=== PATIENT | male | born 1950 | race African-American/Black ===

== ENCOUNTER 2016-10-20 21:11 | Emergency (ER) | payer MEDICARE, OTHER ==
[~2016-10-20] VITALS: Ht 182.9 cm; Wt 68.0 kg
[~2016-10-20 21:11] MED LIST: AMLO10TA2 PO; CLOT15CR TP; POTA20TA4 PO; RANI150C PO
[2016-10-20 21:25] VITALS: BP 120/71
[2016-10-20] MEDS ORDERED: HYDROCODONE/APAP 5/325MG TABLET. PO ONE (21:45)
[2016-10-20] MEDS ORDERED: HYDR-2666 PO (22:18)
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
--- NOTE | 2016-10-21 08:53 | RAD ---
3 view right rib detail series and AP view chest x-ray Indications: Right rib pain after a fall today. Findings: There is a small cortical disruption of the lateral aspect of the right fifth rib. Mild deformity of the lateral aspect of the right sixth rib is seen. This is consistent with nondisplaced acute right rib fractures. There are old healed fractures of the lateral aspect of the right ninth and 10th ribs. Comparison chest x-ray: July 02, 2016. Chest x-ray demonstrates old healed left rib cage fractures. No pleural effusion or pneumothorax is seen. There is chronic interstitial lung disease bilaterally. No lung consolidation is seen. The heart size and pulmonary vasculature and mediastinum and both duncan are unremarkable otherwise. IMPRESSION: Nondisplaced acute posttraumatic fractures of the lateral right fifth and sixth ribs.
== END 2016-10-20 22:46 | disposition home or self-care (01) ==
LOC: ER 21:11
DX: R07.81 Pleurodynia (principal); I10 Essential (primary) hypertension; K21.9 Gastro-esophageal reflux disease without esophagitis; F10.20 Alcohol dependence, uncomplicated; F12.10 Cannabis abuse, uncomplicated; F14.10 Cocaine abuse, uncomplicated; Z86.718 Personal history of other venous thrombosis and embolism; W17.89XA Other fall from one level to another, initial encounter; Y93.89 Activity, other specified; Y99.8 Other external cause status; Y92.89 Other specified places as the place of occurrence of the external cause
CPT/HCPCS: 71101; 99284

== ENCOUNTER 2019-04-03 08:12 | Emergency (ER) | payer OTHER ==
[~2019-04-03] VITALS: Ht 182.9 cm; Wt 68.0 kg
[~2019-04-03 08:12] MED LIST changes: -AMLO10TA2 PO; +AMLO10TA8 PO; +HYDR-2761 PO
[2019-04-03 09:16] LABS: BASO # 0.1 x10^3/uL (0.0-0.2); BASO % 1 % (0-3); EOS # 0.4 x10^3/uL (0.0-0.7); EOS % 5 % (0-3); HEMATOCRIT 26.4 % (39.0-53.0); HEMOGLOBIN 8.5 g/dL (13.0-17.5); LYMPH # 1.3 x10^3/uL (1.0-4.8); LYMPH % 16 % (24-48); MEAN CORPUSCULAR HEMOGLOBIN 28 pg (25-35); MEAN CORPUSCULAR HGB CONC 32 g/dL (31-37); MEAN CORPUSCULAR VOLUME 86 fL (79-100); MONO # 0.5 x10^3/uL (0.0-1.1); MONO % 7 % (0-9); NEUT # 5.8 x10^3uL (1.8-7.7); NEUT % 72 % (31-73); PLATELET COUNT 249 x10^3/uL (140-400); RED BLOOD COUNT 3.05 x10^6/uL (4.30-5.70); RED CELL DISTRIBUTION WIDTH 15.7 % (11.5-14.5); WHITE BLOOD COUNT 8.1 x10^3/uL (4.0-11.0)
--- NOTE | 2019-04-03 09:17 | PHYS DOC ---
Past Medical History Past Medical History: DVT, GERD, Hypertension Past Surgical History: Other Additional Past Surgical Histo: right bka Alcohol Use: Heavy Drug Use: Cocaine, Marijuana Adult General Chief Complaint Chief Complaint: PICC line placement HPI HPI Patient is a 68 year old male who brought in by EMS for insertion of PICC line. Patient is a resident of [facility] and taking cephalosporin antibiotic through the PICC line. halfway reported that intermittently and of transfusion of antibiotic this morning patient changed position and PICC line came out. Patient asking for snack frequently and denies other problem at arrival to ER. Review of Systems Review of Systems Constitutional: Denies fever or chills [] Eyes: Denies change in visual acuity, redness, or eye pain [] HENT: Denies nasal congestion or sore throat [] Respiratory: Denies cough or shortness of breath [] Cardiovascular: No additional information not addressed in HPI [] GI: Denies abdominal pain, nausea, vomiting, bloody stools or diarrhea [] : Denies dysuria or hematuria [] Musculoskeletal: Denies back pain or joint pain [] Integument: Denies rash or skin lesions [] Neurologic: Denies headache, focal weakness or sensory changes [] Endocrine: Denies polyuria or polydipsia [] All other systems were reviewed and found to be within normal limits, except as documented in this note. Current Medications Current Medications Current Medications Medications (Trade) Dose Ordered Sig/[facility] Start Time Stop Time Status Last Admin Dose Admin Metoclopramide HCl (Reglan Vial) 10 mg 1X ONCE 04/03/19 11:15 04/03/19 11:16 DC 04/03/19 10:58 10 MG Oxycodone HCl (Roxicodone) 10 mg 1X ONCE 04/03/19 09:30 04/03/19 09:31 DC 04/03/19 09:42 10 MG Allergies Allergies Allergies Coded Allergies Type Severity Reaction Last Updated Verified No Known Drug Allergies 07/02/16 No Physical Exam Physical Exam Constitutional: Well nourished, no acute distress, non-toxic appearance. [] HENT: Normocephalic, atraumatic Eyes: PERRLA, EOMI, conjunctiva normal, no discharge. [] Neck: Normal range of motion, no tenderness, supple, no stridor. [] Cardiovascular:Heart rate regular rhythm, no murmur [] Lungs & Thorax: Bilateral breath sounds clear to auscultation [] Skin: Warm, dry, no erythema, no rash. [] Back: No tenderness, no CVA tenderness. [] Extremities: Right below knee amputation, left lower extremity dressing in place, no tenderness, no cyanosis, no clubbing, ROM intact, no edema. [] Neurologic: Alert and oriented X 3, normal motor function, normal sensory function, no focal deficits noted. [] Psychologic: Affect normal, judgement normal, mood normal. [] Current Patient Data Vital Signs Vital Signs Date Time Temp Pulse Resp B/P (MAP) Pulse Ox O2 Delivery O2 Flow Rate FiO2 04/03/19 13:42 66 22 128/67 (87) 97 Room Air 04/03/19 08:22 97.6 97.6 Lab Values Laboratory Tests Test 04/03/19 08:40 04/03/19 09:04 Glucose (Fingerstick) 99 mg/dL (70-99) White Blood Count 8.1 x10^3/uL (4.0-11.0) Red Blood Count 3.05 x10^6/uL (4.30-5.70) L Hemoglobin 8.5 g/dL (13.0-17.5) L Hematocrit 26.4 % (39.0-53.0) L Mean Corpuscular Volume 86 fL (79-100) Mean Corpuscular Hemoglobin 28 pg (25-35) Mean Corpuscular Hemoglobin Concent 32 g/dL (31-37) Red Cell Distribution Width 15.7 % (11.5-14.5) H Platelet Count 249 x10^3/uL (140-400) Neutrophils (%) (Auto) 72 % (31-73) Lymphocytes (%) (Auto) 16 % (24-48) L Monocytes (%) (Auto) 7 % (0-9) Eosinophils (%) (Auto) 5 % (0-3) H Basophils (%) (Auto) 1 % (0-3) Neutrophils # (Auto) 5.8 x10^3uL (1.8-7.7) Lymphocytes # (Auto) 1.3 x10^3/uL (1.0-4.8) Monocytes # (Auto) 0.5 x10^3/uL (0.0-1.1) Eosinophils # (Auto) 0.4 x10^3/uL (0.0-0.7) Basophils # (Auto) 0.1 x10^3/uL (0.0-0.2) Sodium Level 138 mmol/L (136-145) Potassium Level 4.3 mmol/L (3.5-5.1) Chloride Level 103 mmol/L (98-107) Carbon Dioxide Level 26 mmol/L (21-32) Anion Gap 9 (6-14) Blood Urea Nitrogen 22 mg/dL (8-26) Creatinine 1.3 mg/dL (0.7-1.3) Estimated GFR (Cockcroft-Gault) 66.6 Glucose Level 91 mg/dL (70-99) Calcium Level 9.2 mg/dL (8.5-10.1) Laboratory Tests 04/03/19 09:04 Laboratory Tests 04/03/19 09:04 EKG EKG [] Radiology/Procedures Radiology/Procedures [][facility] [address] [place], [place] [id number] IMAGING REPORT Signed PATIENT: MERRICK DIAZ ACCOUNT: [id number] : 1950 LOCATION: ER AGE: 68 SEX: M EXAM STATUS: REG ER ORD. PHYSICIAN: RICARDO GUTIERREZ MD REASON: PICC line insertion PROCEDURE: PORTABLE CHEST 1V EXAM: 1. Chest one view, 1210. 2. Chest one view, 1224. 3. Chest one view, 1235. 4. Chest one view, 1237. HISTORY: PICC line placement. COMPARISON: 10/20/2016. FINDINGS: The initial examination demonstrates a left arm PICC line with its tip in the superior cavoatrial junction. Later images demonstrate repositioning into the distal superior vena cava on the final study. Interstitial opacities in a basilar and subpleural distribution on the right greater than left are increased since 2017. There is no pneumothorax or pleural effusion. The heart is not enlarged. Atherosclerotic calcifications are noted. IMPRESSION: 1. The PICC line has its tip in the distal superior vena cava on the final image. 2. Interstitial infiltrates suggesting interstitial lung disease have developed since 10/20/2016. Electronically signed by: Elijah Ho MD (04/03/2019 2:06 PM) [facility] DICTATED and SIGNED BY: CHELSEY HO MD DATE: 04/03/19 1403 Course & Med Decision Making Course & Med Decision Making Pertinent Labs and Imaging studies reviewed. (See chart for details) Evaluation of patient in ER showed 68-year-old male patient resident of [facility] brought in for PICC line insertion after it came out accidentally this morning. On-call [facility] PICC line staff presented to ER and inserted PICC with confirmation with chest x-ray and was sent back to the [facility]. Dragon Disclaimer Dragon Disclaimer This electronic medical record was generated, in whole or in part, using a voice recognition dictation system. Departure Departure Impression: Primary Impression: Encounter for management of peripherally inserted central catheter (PICC) Disposition: 01 HOME, SELF-CARE (to the [facility] at 1304) Condition: IMPROVED Referrals: SHREYA RUBIN MD (PCP) Patient Instructions: PICC Home Guide Additional Instructions: Continue current medication Follow-up with your primary care physician in 2-3 days Return to ER if not getting better RICARDO GUTIERREZ MD Apr 03, 2019 09:17
[2019-04-03 09:28] LABS: CALCIUM 9.2 mg/dL (8.5-10.1); CREATININE 1.3 mg/dL (0.7-1.3); GFR 66.6; POTASSIUM 4.3 mmol/L (3.5-5.1)
[2019-04-03] MEDS ORDERED: oxyCODONE IR 5 MG TABLET PO ONE (09:30)
[2019-04-03] MEDS ORDERED: METOCLOPRAMIDE HCL 10 MG/2 ML VIAL. IV ONE (11:15)
[2019-04-03 13:42] VITALS: BP 128/67
--- NOTE | 2019-04-03 14:10 | RAD ---
EXAM: 1. Chest one view, 1210. 2. Chest one view, 1224. 3. Chest one view, 1235. 4. Chest one view, 1237. HISTORY: PICC line placement. COMPARISON: 10/20/2016. FINDINGS: The initial examination demonstrates a left arm PICC line with its tip in the superior cavoatrial junction. Later images demonstrate repositioning into the distal superior vena cava on the final study. Interstitial opacities in a basilar and subpleural distribution on the right greater than left are increased since 2017. There is no pneumothorax or pleural effusion. The heart is not enlarged. Atherosclerotic calcifications are noted. IMPRESSION: 1. The PICC line has its tip in the distal superior vena cava on the final image. 2. Interstitial infiltrates suggesting interstitial lung disease have developed since 10/20/2016. Electronically signed by: Elijah Ho MD (04/03/2019 2:06 PM) [facility] [place]
== END 2019-04-03 14:09 | disposition home or self-care (01) ==
LOC: ER 08:12
DX: Z45.2 Encounter for adjustment and management of vascular access device (principal); I10 Essential (primary) hypertension; K21.9 Gastro-esophageal reflux disease without esophagitis; F10.20 Alcohol dependence, uncomplicated; Y90.9 Presence of alcohol in blood, level not specified; Z86.718 Personal history of other venous thrombosis and embolism
CPT/HCPCS: 36415; 36569; 71045; 80048; 82962; 85025; 96374; 99285; J2765; 96376